=== PATIENT | female | born 1975 | race Caucasian/White ===

== ENCOUNTER 2016-08-31 18:02 | Emergency (ER) | payer OTHER ==
[~2016-08-31] VITALS: Ht 162.6 cm; Wt 54.4 kg
[~2016-08-31 18:02] MED LIST: ALEVE220 MG PO; ALPRAZOLAM0.5 MG PO; HYDROCODONE/ACE1 TA1 PO; XANAX0.5 MG PO; ZOFRAN 4 MG TABL4 MG PO
[2016-08-31 18:11] VITALS: BP 130/77
--- NOTE | 2016-08-31 18:36 | ED HEADACHE COMPLAINT ---
History of Present Illness General Chief Complaint: Headache Stated Complaint: BEVERLY Source: patient Exam Limitations: no limitations Vital Signs & Intake/Output Vital Signs & Intake/Output Vital Signs Date Time Temp Pulse Resp B/P Pulse O2 O2 Flow FiO2 Ox Delivery Rate 08/31 1811 98.5 92 18 130/77 98 Room Air Allergies Coded Allergies: NO KNOWN ALLERGIES (10/28/13) Reconcile Medications Alprazolam 0.5 MG TAB 1 TAB PO PRN ANXIETY (Reported) Butalb/Acetaminophen/Caffeine (Fioricet 50-300-40 MG Capsule) 50 MG-300 MG-40 MG CAPSULE 1 TAB PO TID PRN MIGRAINE HYDROCODONE/ACETAMINOPHEN (Hydrocodon-Acetaminophen 5-325) 1 TAB TAB 1-2 TAB PO Q6P PRN PAIN Ketorolac Tromethamine 10 MG TABLET 1 TAB PO TID HEADACHE RECEIVED im IN er Naproxen Sodium (Aleve) 220 MG TAB 1 TAB PO ONCE PAIN (Reported) Triage Note: PT COMPLAINS OF INTERMITTANT THROBBING L SIDE OF HEAD FOR 5 DAYS. HAS APPOINTMENT WITH PMD SATURDAY BUT DID NOT WANT TO WAIT. DENIES VISON CHANGES Triage Nurses Notes Reviewed? yes Onset: Gradual Duration: intermittent Timing: recent history Quality/Severity: pressure, sharp Severity Numbers: 7 Head Injury Location: temporal No Modifying Factors: none : No Patient currently breastfeeds: No HPI: Patient is an 41-year-old female with past medical history of migraines AND ANXIETY who presents to emergency room with a five-day history of intermittent worsening migraines where she complains of bilateral temporal headaches. Patient has taken Excedrin without relief of symptoms. She denies any fever chills blurred vision photophobia and is able tolerate by mouth denies any nausea or vomiting. Denies any acute onset or thunderclap headache or worse headache of life. (BEATA THAPA) Past History Travel History Traveled to [place] past 21 day No Medical History Any Pertinent Medical History? none Neurological: NONE EENT: NONE Cardiovascular: NONE Respiratory: NONE Gastrointestinal: NONE Hepatic: NONE Renal: NONE Musculoskeletal: NONE Psychiatric: NONE Endocrine: NONE Blood Disorders: NONE Cancer(s): NONE [employer]CTOR/Reproductive: NONE Surgical History Surgical History: non-contributory Psychosocial History What is your primary language Spanish Tobacco Use: Never used ETOH Use: denies use Illicit Drug Use: denies illicit drug use Family History Hx Contributory? No (BEATA THAPA) Review of Systems Review of Systems Constitutional: Reports: no symptoms. Eyes: Reports: no symptoms. Ears, Nose, Throat, Mouth: Reports: no symptoms. Respiratory: Reports: no symptoms. Cardiovascular: Reports: no symptoms. Gastrointestinal/Abdominal: Reports: no symptoms. Genitourinary: Reports: no symptoms. Musculoskeletal: Reports: no symptoms. Skin: Reports: no symptoms. Neurological/Psychological: Reports: see HPI, headache. Hematologic/Endocrine: Reports: see HPI. Endocrine: Reports: no symptoms. Immunologic/Allergic: Reports: no symptoms. All Other Systems: Reviewed and Negative (BEATA THAPA) Physical Exam Physical Exam General Appearance: no apparent distress, awake Head: atraumatic Eyes: Bilateral: normal appearance, PERRL, EOMI. Ears, Nose, Throat: normal pharynx, normal ENT inspection, hearing grossly normal Neck: normal inspection, supple Respiratory: normal breath sounds, chest non-tender, no respiratory distress Cardiovascular: regular rate/rhythm Gastrointestinal: non-tender Back: normal inspection Extremities: normal inspection, normal capillary refill, normal range of motion, no edema Psychiatric: awake, alert, oriented x 3 Cranial Nerves: normal hearing, normal speech, PERRL Skin: intact, normal color, warm/dry Comments: Negative Romberg and negative cerebellar testing Core Measures Severe Sepsis Present: No Septic Shock Present: No (BEATA THAPA) Progress Differential Diagnosis: carotid dissection, cav sinus thromb, cluster BEVERLY, encephalitis, IC mass/tumor, intracranial Hem., meningitis, migraine BEVERLY, musculoskeletal pain, post LP headache, sinusitis, SSS thrombosis, subarach. Hem., tension BEVERLY, temporal arteritis, TMJ syndrome, viral cephalgia Plan of Care: Patient currently is in no apparent distress is able tolerate by mouth physical exam was unremarkable. Patient was strongly advised to follow-up with neurology and begin medications and plan as instructed and discharge instructions. No concerns of subarachnoid hemorrhage patient does not require emergent CT scan imaging (BEATA THAPA) Departure Departure Disposition: HOME OR SELF CARE Condition: Stable Clinical Impression Primary Impression: Headache Referrals: CARO MCQUEEN MD (PCP/Family) Additional Instructions: As discussed begin the prescription of ketorolac for pain and inflammation and headaches. Begin the prescription of Fioricet for breakthrough headache relief. Prescriptions are waiting a [facility] pharmacy. If no better on Saturday follow-up with neurologist Dr. Arora. If symptoms worsen return to emergency room Departure Forms: Customer Survey General Discharge Information Prescriptions: Current Visit Scripts Ketorolac Tromethamine 1 TAB PO TID #15 TAB RECEIVED im IN er Butalb/Acetaminophen/Caffeine (Fioricet 50-300-40 MG Capsule) 1 TAB PO TID PRN MIGRAINE #15 TAB (RUBIN THIBODEAUX,BEATA) PA/ENTRY LEVEL MANUFACTURING ENGINEER Co-Sign Statement Statement: ED Attending supervision documentation- [] I saw and evaluated the patient. I have also reviewed all the pertinent lab results and diagnostic results. I agree with the findings and the plan of care as documented in the PA's/ENTRY LEVEL MANUFACTURING ENGINEER's documentation. [X] I have reviewed the ED Record and agree with the PA's/ENTRY LEVEL MANUFACTURING ENGINEER's documentation. [] Additions or exceptions (if any) to the PAs/ENTRY LEVEL MANUFACTURING ENGINEER's note and plan are summarized below: [] (ALMA DU,SVEN Munoz)
[2016-08-31] MEDS ORDERED: FIORICET 50-301 EACH PO (18:58)
[2016-08-31] MEDS ORDERED: KETOROLAC TROME10 M1 PO (18:58)
== END 2016-08-31 19:04 ==
LOC: ERH 18:02
DX: R51 Headache (principal)
CPT/HCPCS: 96372; J1885